=== PATIENT | male | born 2000 | race Asian ===

== ENCOUNTER 2019-02-09 18:44 | Emergency (ER) | payer OTHER ==
[2019-02-09 18:53] VITALS: BP 122/53
[2019-02-09] MEDS ORDERED: NAPROXEN 250 MG TABLET PO STA (21:58)
--- NOTE | 2019-02-09 22:00 | ED Physician Documentation ---
History of Present Illness - Stated complaint Stated Complaint: HIP/BACK PX - Chief complaint Chief Complaint: Back Pain - Additonal information Additional information: 18-year-old male presents the emergency department with lower back pain which started yesterday after doing squats. The patient lifted again today and had worsening of the pain. The patient denies saddle anesthesia, urinary retention, overflow incontinence, lower leg weakness, sensory changes or blood in the urine. No history of fever or IV drug use. No attempts at symptom management. Review of Systems Constitutional: denies: Fever Throat: denies: Dental pain / toothache Cardiac: denies: Chest pain / pressure Respiratory: denies: Dyspnea GI: denies: Abdominal Pain : denies: Incontinent, Hematuria Skin: denies: Rash Musculoskeletal: reports: Back pain Neurologic: denies: Generalized weakness, Focal weakness, Numbness PD PAST MEDICAL HISTORY - Past Medical History Past Medical History: No - Past Surgical History Past Surgical History: No - Present Medications Home Medications: Ambulatory Orders Medication Instructions Recorded Confirmed Naproxen 500 mg PO BID PRN #60 tablet 02/09/19 diazePAM [Valium] 5 mg PO TID PRN #15 tablet 02/09/19 - Allergies Allergies/Adverse Reactions: Allergies Allergy/AdvReac Type Severity Reaction Status Date / Time No Known Drug Allergies Allergy Verified 02/09/19 21:25 - Social History Does the pt smoke?: No Smoking Status: Never smoker Does the pt drink ETOH?: No Does the pt have substance abuse?: No - Immunizations Immunizations are current?: Yes - POLST Patient has POLST: No PD ED PE NORMAL - General General: Alert and oriented X 3 - HEENT HEENT: Atraumatic, PERRL, EOMI, Ears normal - Back Back: Other (The patient has no tenderness along the spinous processes but is tender in the paraspinal muscles) - Derm Derm: Normal color - Extremities Extremities: No deformity - Neuro Neuro: Alert and oriented X 3, No motor deficit, No sensory deficit, Other (5/5 muscle strength in the lower extremities, normal 2/4patellar reflex and normal sensation light touch) - Psych Psych: Normal mood Results - Vitals Vitals: Vital Signs - 24 hr 02/09/19 18:48 Temperature 36.5 C Heart Rate 66 Respiratory 16 Rate Blood Pressure 122/53 L O2 Saturation 99 Oxygen O2 Source Room air PD MEDICAL DECISION MAKING - ED course ED course: The patient's symptoms are consistent with a muscular etiology and the patient appears appropriate for discharge. The patient will do physical therapy with the [facility]. The patient will follow up with primary care and if his symptoms are not improving he may require an outpatient MRI. The patient will return to the emergency department for any worsening or concerns Departure - Departure Disposition: Home, Self Care Clinical Impression: Low back strain Qualifiers: Encounter type: initial encounter Qualified Code(s): S39.012A - Strain of muscle, fascia and tendon of lower back, initial encounter Condition: Good Instructions: ED Sprain Strain Lumbar Follow-Up: PRICILA Gray [Provider Group] (Please follow-up with primary care this coming week. Please asked them to arrange for outpatient physical therapy. If your symptoms are ongoing you may need an outpatient MRI) Prescriptions: diazePAM [Valium] 5 mg PO TID PRN #15 tablet PRN Reason: Spasms Naproxen 500 mg PO BID PRN #60 tablet PRN Reason: Pain Comments: Please return to the emergency department for any worsening or any concerns Discharge Date/Time: 02/09/19 22:10
== END 2019-02-09 22:10 | disposition home or self-care (01) ==
LOC: ED 18:44
DX: S39.012A Strain of muscle, fascia and tendon of lower back, initial encounter (principal); Y93.B9 Activity, other involving muscle strengthening exercises
CPT/HCPCS: 99283; A9270